=== PATIENT | male | born 1970 | race American Indian/Alaskan Native ===

== ENCOUNTER 2021-10-09 12:25 | Emergency (ER) | payer SELFPAY ==
[2021-10-09 15:02] VITALS: BP 134/97
[2021-10-09] MEDS ORDERED: dexAMETHasone 4 MG/ML VIAL IM ONE (15:08)
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
== END 2021-10-09 15:49 | disposition home or self-care (01) ==
LOC: ED 12:25
DX: M79.10 Myalgia, unspecified site (principal); V89.2XXA Person injured in unspecified motor-vehicle accident, traffic, initial encounter; Y93.89 Activity, other specified; Y92.89 Other specified places as the place of occurrence of the external cause; Y99.8 Other external cause status
CPT/HCPCS: 96372; 99282; J1100